=== PATIENT | male | born 1980 | race African-American/Black ===

== ENCOUNTER 2023-10-25 19:56 | Emergency (ER) | payer MEDICAID ==
[~2023-10-25] VITALS: Ht 172.7 cm; Wt 87.0 kg
[2023-10-25 20:09] VITALS: BP 114/81; PULSE 64; RESP 18; TEMP 98.3; O2SAT 98
[2023-10-25] MEDS ORDERED: CYCLOBENZAPRINE 10MG TABLET PO ONE (20:30)
[2023-10-25] MEDS ORDERED: IBUPROFEN 400MG TABLET PO ONE (20:30)
[2023-10-25] MEDS ORDERED: LIDOCAINE 5% PATCH TOP SCH (20:30)
[2023-10-25] MEDS ORDERED: ACETAMINOPHEN 325MG TABLET PO ONE (20:30)
[2023-10-25] MEDS ORDERED: NAPR-679 MT (22:09)
[2023-10-25] MEDS ORDERED: LIDO700A15 TP (22:09)
[2023-10-25] MEDS ORDERED: CYCL5TAB MT (22:09)
[2023-10-25] MEDS ORDERED: TOPUD MT (22:09)
== END 2023-10-25 23:26 | disposition home or self-care (01) ==
LOC: ER 19:56
DX: S80.01XA Contusion of right knee, initial encounter (principal); S39.012A Strain of muscle, fascia and tendon of lower back, initial encounter; Z79.899 Other long term (current) drug therapy; V49.49XA Driver injured in collision with other motor vehicles in traffic accident, initial encounter; Y93.89 Activity, other specified; Y92.89 Other specified places as the place of occurrence of the external cause; Y99.8 Other external cause status
CPT/HCPCS: 73564; 73590; 99284